=== PATIENT | male | born 1955 | race Caucasian/White ===

== ENCOUNTER 2018-03-21 22:17 | Inpatient (IN) ==
[2018-03-21] MEDS ORDERED: LACTATED RINGERS 1,000 ML IV ONE (22:33)
[2018-03-21] MEDS ORDERED: ONDANSETRON 4 MG/2 ML VIAL IV ONE (22:53)
[2018-03-21] MEDS: HYDROmorphone 2 MG/ML VIAL IV PRN (22:54)
[2018-03-21 23:33] LABS: Basophils # (Auto) 0 K/mcL (0.0-0.3); Basophils % (Auto) 0 % (0.0-2.0); Eosinophils # (Auto) 0 K/mcL (0.0-0.7); Eosinophils % (Auto) 0 % (0.0-7.0); Granulocytes % (Auto) 92.8 % (38.0-78.0); Lymphocytes # (Auto) 0.5 K/mcL (1.5-4.8); Lymphocytes % (Auto) 1.9 % (15.5-49.0); Mean Cell Volume 77.1 fL (80.0-100.0); Mean Corpuscular HGB Conc 31.6 g/dL (31.0-36.0); Mean Corpuscular Hemoglobin 24.4 pg (26.0-34.0); Monocytes # (Auto) 1.3 K/mcL (0.1-0.9); Monocytes % (Auto) 5.3 % (1.0-12.0); Platelet Count 355 K/mcL (140-440); RBC 3.73 M/mcL (4.50-5.90); Red Cell Distribution Width 23.1 % (11.5-14.5)
[2018-03-21 23:42] LABS: ALT/SGPT 7 U/l (0-40); Albumin 2.6 gm/dL (3.2-5.2); Albumin/Globulin Ratio 0.6 (1.0-2.3); Alkaline Phosphatase 68 U/L (39-117); Blood Urea Nitrogen 26 mg/dl (6-20); Lipase 41 U/L (7-60)
[2018-03-21] MEDS ORDERED: LEVOFLOXACIN 750 MG/150 ML BAG IV ONE (23:46)
[2018-03-21] MEDS ORDERED: PIPERACILLIN SODIUM/TAZOBACTAM 3.375 GM in DEXTROSE 5% IN WATER 50 ML IV ONE (23:56)
[2018-03-22] MEDS: HYDROmorphone 2 MG/ML VIAL IV PRN ×2 (00:13→01:13)
[2018-03-22] MEDS ORDERED: 0.9 % SODIUM CHLORIDE 1,000 ML IV ONE (00:15)
[2018-03-22 00:19] LABS: Appearance,Urine CLOUDY; Bacteria,Urine 0 /hpf (0); Bilirubin,Urine NEG (NEG); Color,Urine YELLOW; Glucose,Urine (UA) NEGATIVE (NEG); Leukocyte Esterase,Urine 500 /uL (NEG); Mucus,Urine FEW /hpf (0); Protein,Urine 30 mg/dL (NEG); Specific Gravity,Urine 1.017 (1.000-1.035); Urine Blood 0.03 mg/dL (<0.03); Urine Hyaline Cast 9 /lpf (0-2); Urine RBC 6 /hpf (0-1); Urine Squamous Epithelial Cell 0 /hpf (0-4); Urine WBC 88 /hpf (0-4)
--- NOTE | 2018-03-22 00:52 | Internal Med History&Physical ---
Medical - H&P: HPI Patient information: Note initiated : 03/22/18 at 12:49 am Service Date, if different from initiated Date: [] Patient: Sergey Monaco a 62 y/o M admitted on for suspects abd infection. Chief Complaint: Abdominal pain History of present illness: Mr. Monaco is a 62 year old M with a history of cirrhosis and ascites, COPD which is generally mild, treated peptic ulcer disease who presents to the ED with abdominal pain. History is obtained speaking with the patient, reviewing minimal old records, discussing with the ED staff. Patient states he started having abdominal pain about 2 weeks ago. It waxes and wanes in nature. It is achy in character. It was worse today after about 6 PM. Is up to 10/10 in intensity, again would wax and wane. It was throughout his abdomen, though it seems worse in the right upper abdomen. He's not had fever he knows of, though he felt chills when he arrived at the hospital. There is no associated nausea or vomiting, no diarrhea. There is no change in the pain with food. He does have a history of peptic ulcer disease with heartburn symptoms, he's had none of that associated with the current pain , and he continues to take twice daily omeprazole. Approximately a week before the onset of the symptoms, he ran out a couple of his diuretics (presumably spironolactone and furosemide given his history of significant ascites and he states he was on diuretics to control his abdominal swelling). Since that time he's had slowly increased abdominal swelling and distention. As noted the patient presented to the ED, or evaluation reveals a white count of 25,000, acute kidney injury with creatinine 1.8, elevated lactate of 5.3, elevated INR 1.4. Patient is being admitted to the hospital for the treatment of sepsis from presumptive abdominal source. Urine is also possible source with pyuria and positive leukocyte esterase on specimen, however there is no bacteria on microscopic. All systems: reviewed and no additional remarkable complaints except as stated Medical - H&P: PMH Medical history: Cirrhosis Ascites, history of large volume paracentesis 14.3 liters 07/12/2014-he thinks that may be most recent PUD EGD x [address] 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 Smokes about 1 pack in 4 days; last drink 4 months ago, had been having about 1 drink a month prior to that. Medical - H&P: Meds Home Medications Medication Instructions Recorded Confirmed Type Albuterol Sulfate [Ventolin] 1 puff INH Q4HP PRN 03/22/18 03/22/18 History Omeprazole [Prilosec] 20 cap PO QDAY 03/22/18 03/22/18 History Sennosides/Docusate Sodium [Stool 1 each PO DAILY 03/22/18 03/22/18 History Softener Tablet] Allergies Allergy/AdvReac Type Severity Reaction Status Date / Time codeine AdvReac Mild Vomiting Verified 03/22/18 06:12 Medical - H&P: Exam - Constitutional Vitals: Temp Pulse Resp BP Pulse Ox 98.5 F 109 H 20 125/75 94 03/21/18 22:19 03/22/18 00:41 03/21/18 22:19 03/22/18 00:31 03/22/18 00:41 Exam: GENERAL: Alert, oriented, in no acute distress. Cooperative, thin, appears stated age. HEENT: Atraumatic. PERRL, conjunctiva clear, no scleral icterus. Hearing grossly intact. Oropharynx with dry mucous membranes, no lip or gum lesions, no pharyngeal erythema or exudate. Tongue midline, palate rises symmetrically. NECK: Supple without meningismus, no thyromegaly RESPIRATORY: Breath sounds clear bilaterally without wheezes or rhonchi. Respiratory effort is unlabored. CARDIOVASCULAR: Regular rhythm, mildly tachycardic, no murmur gallop or rub. No peripheral edema. Carotid pulses 2+ without bruit. Pedal pulses 2+. GI: Abdomen soft, distended with moderate tenderness in the right upper quadrant and epigastric regions, mild diffuse tenderness otherwise. No guarding or rebound. The abdomen is dull to percussion, the flanks are bulging. Hepatosplenomegaly cannot be assessed secondary to abdominal distention. LYMPHATIC: No cervical or supraclavicular lymphadenopathy MUSCULOSKELETAL: No joint erythema or swelling, normal range of motion in all extremities. Digital clubbing. SKIN: Skin is very warm to touch, particularly on the abdomen. Spider angiomata are scattered on the chest. No jaundice. Skin turgor is decreased. NEUROLOGIC: Cranial nerves II through XII grossly intact. Muscle mass diminished for age. Strength 5/5 in the upper and lower extremities. Sensation intact to light touch bilaterally. Deep tendon reflexes 2+ at the biceps and patella. No asterixis. PSYCHIATRIC: Alert, oriented x3, normal mood and affect, normal insight. Medical - H&P: Reslt - Labs CBC & Chem 7: 03/22/18 03:00 03/22/18 03:00 Labs: Short CBC 03/21/18 Range/Units 22:35 WBC 25.6 H (4.5-11.0) K/mcL Hgb 9.1 L (13.5-16.5) g/dL Hct 28.7 L (41.0-55.0) % Plt Count 355 (140-440) K/mcL BMP 03/21/18 22:35 Sodium 130 L Potassium 3.1 L Chloride 87 L Carbon Dioxide 23 BUN 26 H Creatinine 1.8 H Glucose 145 H Calcium 8.2 L Liver Function 03/21/18 Range/Units 22:35 Total Bilirubin 1.4 H (0.0-1.0) mg/dL AST 26 (0-37) U/l ALT 7 (0-40) U/l Alkaline Phosphatase 68 (39-117) U/L Albumin 2.6 L (3.2-5.2) gm/dL Urine 03/21/18 Range/Units 23:40 Urine Color Yellow Urine Appearance Cloudy Urine pH 5.0 (5.0-9.0) Ur Specific [place] 1.017 (1.000-1.035) Urine Protein 30 A (NEG) mg/dL Urine Glucose (UA) Negative (NEG) mg/dL - EKG Data -: EKG Reviewed by Myself EKG shows normal: sinus rhythm, intervals, ST-T waves Rate: tachycardia (107) - Imaging and Cardiology Chest x-ray Status: image reviewed by me Additional comments: Expanded lung mitchell, no infiltrates. IMPRESSION: Negative AP chest x-ray CT scan - abdomen Status: image reviewed by me Additional comments: IMPRESSION: 1. Cirrhosis. No detectable hepatic mass. 2. Large amount of ascites. 3. Cholelithiasis 4. No significant splenomegaly. 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 5. No intra-abdominal abscess. No diverticulitis. Medical - H&P: A/P (1) Septic shock Current visit: Yes Status: Acute (2) Abdominal pain Current visit: Yes Status: Acute (3) Acute renal failure (ARF) Current visit: Yes Status: Acute (4) Acute respiratory failure with hypoxia Current visit: Yes Status: Acute (5) Cirrhosis of liver with ascites Current visit: Yes Status: Acute (6) Coagulopathy Current visit: Yes Status: Acute (7) Peptic ulcer disease Current visit: Yes Status: Acute - Narrative A/P Narrative: 62-year-old male presenting with about 2 weeks of worsening abdominal pain, worsened this evening prompting presentation to ED. Noted to have evidence of septic shock (by definition with lactate greater than 4). Septic shock. He has systemic inflammatory response with presumptive infection , optic shock as indicated by hypoperfusion/organ dysfunction with lactate greater than 4 (though may in part be a bit artifactual due to decreased clearance by the liver). Hemodynamically however he is stable, blood pressures are in the 110's systolic. Initially mildly tachycardic, now under the high 90s. He has received fluid resuscitation in the emergency department and antibiotics have been started. Source of sepsis could be acute cholecystitis, he is tender in the right upper quadrant. However only total bilirubin is abnormal as far as liver enzymes go. SBP also a concern, though generally adds not seen with focal tenderness. He will need to be evaluated. He does also have pyuria, but no bacteriuria, urine is another possible source. Lungs are clear. Plan: Admission to ICU Fluid resuscitate 30 mL/KG of IV fluids Broad-spectrum antibiotics, will use single agent in Zosyn which should provide good coverage for cholecystitis as well as peritonitis or cystitis Trend lactate Follow-up perfusion Follow-up results of CT scan Right upper quadrant ultrasound in a.m. to better characterize the gallbladder Ultrasound-guided paracentesis for diagnostic and therapeutic purposes, sending cell count, culture and Gram stain, albumin Abdominal pain. Differential diagnosis as noted above. Plan: As above, follow-up imaging studies. Acute kidney injury. Creatinine 1.8. No old records, patient has no known history of kidney disease. Suspect is secondary to sepsis and represents further organ dysfunction. We'll need to consider hepatorenal is a possibility if creatinine fails to respond to fluid resuscitation. Plan: Follow creatinine with fluid resuscitation. Acute hypoxemic respiratory failure. Patient became mildly hypoxic after presentation in the ED, now requiring supplemental oxygen. Plan: Continue supplemental oxygen. Cirrhosis with ascites. He had 1 large volume paracentesis noted in available records, it occurred in June 2014. He states he's had paracenteses 4 total. He had been on 2 diuretics up until a few weeks ago when he ran out, he has not gotten them refilled. SPECT part of the fluid in his abdomen now is due to lack of diuretic therapy. Does not have evidence of hepatic encephalopathy. Plan: Paracentesis as above. Once sepsis cleared, would benefit from resumption of furosemide and spironolactone. Coagulopathy. Likely secondary to chronic liver disease. INR 1.4. Plan: Monitor Peptic ulcer disease. No evidence of active bleeding. Plan: Continue PPI Prophylaxis: SCDs, will avoid anticoagulants given coagulopathy. CODE STATUS: DO NOT INTUBATE. 105 minutes in patient care
[2018-03-22] MEDS ORDERED: ACETAMINOPHEN 325 MG TABLET PO PRN (01:46)
[2018-03-22] MEDS ORDERED: ONDANSETRON 4 MG/2 ML VIAL IV PRN (01:46)
[2018-03-22] MEDS: 0.9 % SODIUM CHLORIDE 1,000 ML IV SCH ×2 (01:55→12:18)
--- NOTE | 2018-03-22 01:56 | Internal Med Progress Note ---
Medical - Auxillary Note - Subjective Patient Information: Note initiated : 03/22/18 at 1:52 am Service Date, if different from initiated Date: [] Patient: Sergey Monaco 62 y/o M admitted on 03/22/18 for suspects abd infection. Chief Complaint: Sepsis reperfusion note Vital Signs Temperature 98.5 F 03/22/18 01:51 Pulse Rate 108 H 03/22/18 01:51 Respiratory Rate 20 03/22/18 01:51 Blood Pressure 101/66 03/22/18 01:51 Pulse Oximetry (%) 96 03/22/18 01:51 Chest: Coarse breath sounds, unlabored, no wheezes, no rales Cardiovascular: Tachycardic, regular, no murmur, no edema Extremities: 2+ dorsalis pedis pulses, no edema, capillary refill less than 2 seconds. Skin: Warm, nondiaphoretic.
[2018-03-22 03:15] LABS: Hemoglobin A1C 4.9 % HGB (4.0-6.0)
[2018-03-22] MEDS: 0.9 % SODIUM CHLORIDE 10 ML SYRINGE IV SCH ×3 (03:21→15:47)
[2018-03-22 04:58] LABS: Mean Cell Volume 76.9 fL (80.0-100.0); Mean Corpuscular HGB Conc 31.5 g/dL (31.0-36.0); Mean Corpuscular Hemoglobin 24.2 pg (26.0-34.0); Platelet Count 270 K/mcL (140-440); RBC 3.48 M/mcL (4.50-5.90); Red Cell Distribution Width 22.4 % (11.5-14.5)
[2018-03-22 05:33] LABS: ALT/SGPT 5 U/l (0-40); Albumin 2.2 gm/dL (3.2-5.2); Albumin/Globulin Ratio 0.6 (1.0-2.3); Alkaline Phosphatase 71 U/L (39-117); Bilirubin,Direct 0.4 mg/dL (0.0-0.3); Blood Urea Nitrogen 26 mg/dl (6-20); Gamma Glutamyl Transpeptidase 22 U/L (8-61); Uric Acid 7.8 mg/dL (2.5-8.0)
[2018-03-22 05:38] LABS: Anisocytosis 2+ (NONE SEEN); Hypochromasia 1+ (NONE SEEN); Lymphocytes % 1 % (15-49); Monocytes % (Manual) 4 % (1-12); Platelet Estimate NORMAL (NORMAL); RBC Morphology ABNORM (NORMAL); Segmented Neutrophils % 95 % (38-78)
[2018-03-22] MEDS: PIPERACILLIN SODIUM/TAZOBACTAM 3.375 GM in DEXTROSE 5% IN WATER 50 ML IV SCH ×3 (05:45→17:42)
--- NOTE | 2018-03-22 05:56 | XRay Report ---
INDICATION: Smoking history. Dyspnea. TECHNIQUE: AP chest x-ray, portable semiupright COMPARISON: None FINDINGS: Lungs are negative. No parenchymal infiltrate or mass. No focal abnormality. Heart size and vascularity are normal. Alia and mediastinum are negative. No pleural fluid. IMPRESSION: Negative AP chest x-ray Interpreted and Authenticated by: Jacinto Dacosta 03/22/18
[2018-03-22] MEDS ORDERED: MAGNESIUM SULFATE 32.48 MEQ in DEXTROSE 5% IN WATER 100 ML IV ONE (06:00)
--- NOTE | 2018-03-22 06:04 | Cat Scan Report ---
CLINICAL INFORMATION: History of cirrhosis and ascites. Abdominal pain. COMPARISON: Previous abdominal ultrasounds and ultrasound-guided paracentesis. Previous MRI dated 08/15/2013 TECHNIQUE: Axial images were obtained through the abdomen and pelvis. Sagittally and coronally reformatted images. FINDINGS: Lung bases are negative. No parenchymal infiltrate or mass. No pleural fluid. No pericardial fluid. Liver is small and nodular consistent with cirrhosis. No focal mass identified on this noncontrast enhanced examination. Gallbladder is present and there are calcified gallstones. Spleen is not significantly enlarged. Spleen measures 11 cm maximally. There is no recanalized umbilical vein. There are is soft tissue density which is paraesophageal and is consistent with paraesophageal varices. There are probable retroperitoneal varices. There is a large amount of ascitic fluid. There is no detectable intra-abdominal abscess. No gas bubbles within the ascitic fluid. No detectable peritoneal based mass. Peritonitis is not excluded based on this examination. There is fluid extending into the right inguinal canal. Pancreas is negative to the limits of noncontrast enhanced examination. Adrenal glands are negative. Kidneys are small. No hydronephrosis. There is a small nonobstructing left renal calculus. No hydronephrosis or hydroureter. No bladder calculus. Abdominal aorta is calcified. No abdominal aortic aneurysm. Colon appears intrinsically normal. No evidence for diverticulitis. No detectable colonic mass. Appendix is not well-visualized. There is no evidence for appendicitis. No lumbar compression fracture. Sacrum and pelvis are negative. Examination was initially interpreted by [facility] IMPRESSION: 1. Cirrhosis. No detectable hepatic mass. 2. Large amount of ascites. 3. Cholelithiasis 4. No significant splenomegaly. 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 5. No intra-abdominal abscess. No diverticulitis. The exam was performed using radiation dose optimization techniques including, but not limited to, automated exposure control, adjustment of the mA and/or kV according to patient size and use of iterative reconstruction technique. Interpreted and Authenticated by: Jacinto Dacosta 03/22/18
[2018-03-22] MEDS ORDERED: MAGNESIUM SULFATE 4 GM/100 ML BAG IV ONE (06:08)
[2018-03-22] MEDS ORDERED: MAGNESIUM SULFATE 2 GM/50 ML BAG IV SCH ×2 (06:15→08:00)
--- NOTE | 2018-03-22 07:08 | Emergency Department Note ---
Abdominal Pain HPI - General Chief Complaint: Abdominal Pain Stated Complaint: suspects abd infection Time Seen by Provider: 03/21/18 22:39 Source: patient Mode of arrival: ambulatory Limitations: no limitations - History of Present Illness HPI Narrative: This patient has had abdominal pain for last several days. Slight nausea. Pain is felt in the right upper quadrant and epigastrium. Does not radiate to the back. He says he has had a lot of trouble drinking in the past but has not had a drink a couple of years. - Related Data Home Medications Medication Instructions Recorded Confirmed Albuterol Sulfate [Ventolin] 1 puff INH Q4HP PRN 03/22/18 03/22/18 Omeprazole [Prilosec] 20 cap PO QDAY 03/22/18 03/22/18 Sennosides/Docusate Sodium [Stool 1 each PO DAILY 03/22/18 03/22/18 Softener Tablet] Allergies Allergy/AdvReac Type Severity Reaction Status Date / Time codeine AdvReac Mild Vomiting Verified 03/22/18 06:12 Review of Systems Constitutional: Denies: fever Cardiovascular: Denies: chest pain Respiratory: Denies: shortness of breath, cough Gastrointestinal: Reports: abdominal pain, nausea Genitourinary: Denies: dysuria Abdominal Pain PMH - Past Medical History PMF Narrative: Previous alcohol abuse - Social History Smoking status: Current every day smoker Physical Exam Limitations: no limitations General appearance: alert Head: atraumatic Eye: Present: normal appearance ENT: normal exam Neck: Present: normal inspection Chest: Present: normal inspection Respiratory: Present: normal lung sounds bilaterally Cardiovascular: Present: regular rate, normal rhythm, normal heart sounds Abdominal: Present: soft, distention, tenderness. Absent: guarding, rebound, rigidity Abdominal tenderness: Present: RUQ, epigastrium Neurological: Present: alert Psychiatric: Present: normal affect, normal mood Skin: Present: warm, dry Course Vital Signs Temperature 98.5 F 03/21/18 22:19 Pulse Rate 110 H 03/21/18 22:19 Respiratory Rate 20 03/21/18 22:19 Blood Pressure 119/69 03/21/18 22:19 Pulse Oximetry (%) 100 03/21/18 22:19 Temperature 98.9 F 03/22/18 04:02 Pulse Rate 97 H 03/22/18 06:00 Respiratory Rate 24 H 03/22/18 06:00 Blood Pressure 95/59 03/22/18 06:00 Pulse Oximetry (%) 98 03/22/18 06:00 Abdominal Pain - MDM Narrative Medical decision making narrative: Patient's laboratory evaluation was worrisome for sepsis possibly from the urinary tract. His lactic acid was over 5 and his white count was 27,000. We gave him IV Levaquin and Zosyn and he will be admitted to the ICU by Dr. Bardales. - Lab Data Lab results reviewed: Yes I reviewed the patient's lab results. Result diagrams: 03/22/18 03:00 03/22/18 03:00 Lab Results 03/21/18 03/21/18 03/21/18 Range/Units 22:35 22:35 22:35 WBC 25.6 H (4.5-11.0) K/mcL RBC 3.73 L (4.50-5.90) M/mcL Hgb 9.1 L (13.5-16.5) g/dL Hct 28.7 L (41.0-55.0) % POC Hct 29.0 L (41.0-55.0) % MCV 77.1 L (80.0-100.0) fL MCH 24.4 L (26.0-34.0) pg MCHC 31.6 (31.0-36.0) g/dL RDW 23.1 H (11.5-14.5) % Plt Count 355 (140-440) K/mcL MPV 9.0 (7.4-10.4) fL Gran % 92.8 H (38.0-78.0) % Lymph % (Auto) 1.9 L (15.5-49.0) % [place] % (Auto) 5.3 (1.0-12.0) % Eos % (Auto) 0 (0.0-7.0) % Baso % (Auto) 0 (0.0-2.0) % Gran # 23.7 H (1.8-8.0) K/mcL Lymph # (Auto) 0.5 L (1.5-4.8) K/mcL [place] # (Auto) 1.3 H (0.1-0.9) K/mcL Eos # (Auto) 0 (0.0-0.7) K/mcL Baso # (Auto) 0 (0.0-0.3) K/mcL VBG Lactic Acid (0.5-2.2) mmol/L POC Sodium 134 (133-145) mmol/L Sodium 130 L (133-145) mmol/L POC Potassium 3.0 L (3.3-5.1) mmol/L Potassium 3.1 L (3.3-5.1) mmol/L POC Chloride 94 L (96-108) mmol/L Chloride 87 L (96-108) mmol/L Carbon Dioxide 23 (22-30) mmol/L POC Total CO2 21 L (22-30) mmol/L Anion Gap 20.0 H (8-16) POC BUN 24 H (6-20) mg/dl BUN 26 H (6-20) mg/dl Creatinine 1.8 H (0.7-1.2) mg/dl POC Creatinine 1.7 H (0.7-1.2) mg/dl GFR Calculation 40 Glucose 145 H (70-105) mg/dL POC Glucose 144 H (70-105) mg/dL Hemoglobin A1c (4.0-6.0) % HGB Estim Average Glucose mg/dL Calcium 8.2 L (8.6-10.4) mg/dl POC WB Ioniz Calcium 0.91 L (1.16-1.32) mmol/L Total Bilirubin 1.4 H (0.0-1.0) mg/dL AST 26 (0-37) U/l ALT 7 (0-40) U/l Alkaline Phosphatase 68 (39-117) U/L Total Protein 7.1 (5.9-8.4) gm/dL Albumin 2.6 L (3.2-5.2) gm/dL Globulin 4.5 H (2.2-3.7) gm/dL Albumin/Globulin Ratio 0.6 L (1.0-2.3) Lipase 41 (7-60) U/L Urine Color Urine Appearance Urine pH (5.0-9.0) Ur Specific [place] (1.000-1.035) Urine Protein (NEG) mg/dL Urine Glucose (UA) (NEG) mg/dL Urine Ketones (NEG) mg/dL Urine Occult Blood (<0.03) mg/dL Urine Nitrate (NEG) Urine Bilirubin (NEG) mg/dL Urine Urobilinogen (NEG) mg/dL Ur Leukocyte Esterase (NEG) /uL Urine RBC (0-1) /hpf Urine WBC (0-4) /hpf Ur Squamous Epith Cells (0-4) /hpf Urine Bacteria (0) /hpf Hyaline Casts (0-2) /lpf Urine Mucus (0) /hpf Ur Culture Indicated? 03/21/18 03/21/18 03/21/18 Range/Units 22:35 23:00 23:40 WBC (4.5-11.0) K/mcL RBC (4.50-5.90) M/mcL Hgb (13.5-16.5) g/dL Hct (41.0-55.0) % POC Hct (41.0-55.0) % MCV (80.0-100.0) fL MCH (26.0-34.0) pg MCHC (31.0-36.0) g/dL RDW (11.5-14.5) % Plt Count (140-440) K/mcL MPV (7.4-10.4) fL Gran % (38.0-78.0) % Lymph % (Auto) (15.5-49.0) % [place] % (Auto) (1.0-12.0) % Eos % (Auto) (0.0-7.0) % Baso % (Auto) (0.0-2.0) % Gran # (1.8-8.0) K/mcL Lymph # (Auto) (1.5-4.8) K/mcL [place] # (Auto) (0.1-0.9) K/mcL Eos # (Auto) (0.0-0.7) K/mcL Baso # (Auto) (0.0-0.3) K/mcL VBG Lactic Acid 5.3 H* (0.5-2.2) mmol/L POC Sodium (133-145) mmol/L Sodium (133-145) mmol/L POC Potassium (3.3-5.1) mmol/L Potassium (3.3-5.1) mmol/L POC Chloride (96-108) mmol/L Chloride (96-108) mmol/L Carbon Dioxide (22-30) mmol/L POC Total CO2 (22-30) mmol/L Anion Gap (8-16) POC BUN (6-20) mg/dl BUN (6-20) mg/dl Creatinine (0.7-1.2) mg/dl POC Creatinine (0.7-1.2) mg/dl GFR Calculation Glucose (70-105) mg/dL POC Glucose (70-105) mg/dL Hemoglobin A1c 4.9 (4.0-6.0) % HGB Estim Average Glucose 94 mg/dL Calcium (8.6-10.4) mg/dl POC WB Ioniz Calcium (1.16-1.32) mmol/L Total Bilirubin (0.0-1.0) mg/dL AST (0-37) U/l ALT (0-40) U/l Alkaline Phosphatase (39-117) U/L Total Protein (5.9-8.4) gm/dL Albumin (3.2-5.2) gm/dL Globulin (2.2-3.7) gm/dL Albumin/Globulin Ratio (1.0-2.3) Lipase (7-60) U/L Urine Color Yellow Urine Appearance Cloudy Urine pH 5.0 (5.0-9.0) Ur Specific [place] 1.017 (1.000-1.035) Urine Protein 30 A (NEG) mg/dL Urine Glucose (UA) Negative (NEG) mg/dL Urine Ketones Neg (NEG) mg/dL Urine Occult Blood 0.03 A (<0.03) mg/dL Urine Nitrate Neg (NEG) Urine Bilirubin Neg (NEG) mg/dL Urine Urobilinogen 2.0 A (NEG) mg/dL Ur Leukocyte Esterase 500 A (NEG) /uL Urine RBC 6 H (0-1) /hpf Urine WBC 88 H (0-4) /hpf Ur Squamous Epith Cells 0 (0-4) /hpf Urine Bacteria 0 (0) /hpf Hyaline Casts 9 H (0-2) /lpf Urine Mucus Few (0) /hpf Ur Culture Indicated? Yes Disposition Pt seen by CARD DECORATOR/PA only: No Clinical Impression: Sepsis, UTI (urinary tract infection) Disposition: Xfer As Inpt ([facility]) Condition: Fair
[2018-03-22] MEDS: PANTOPRAZOLE 40 MG VIAL IV SCH ×2 (07:34→17:19)
--- NOTE | 2018-03-22 08:11 | Ultrasound Report ---
CLINICAL INFORMATION: Possible peritonitis. History of cirrhosis and ascites TECHNIQUE: Grayscale and color flow Doppler spectral imaging COMPARISON: CT scan dated 03/22/2018 FINDINGS: Abnormal gallbladder. There are stones in the dependent portion of the gallbladder. Gallbladder wall measures 5 mm. This gallbladder wall thickening may be due to ascites. No dilated bile duct. Common bile duct measures 4 mm. Liver is normal. Liver is nodular in configuration consistent with cirrhosis. The liver appears small but measures approximately 15 cm maximally. No detectable focal mass. No evidence for hepatocellular carcinoma. Normal hepatopedal portal venous flow demonstrated with color flow Doppler spectral imaging There is at least moderate ascites. There are septations within the ascitic fluid. No focal intra-abdominal mass to indicate abscess. IMPRESSION: 1. Appearance consistent with cirrhosis. No hepatic mass 2. Ascites. There are septations within the ascitic fluid. 3. Cholelithiasis Interpreted and Authenticated by: Jacinto Dacosta 03/22/18
[2018-03-22] MEDS: ALBUMIN HUMAN 25 GM/100 ML BAG IV SCH ×2 (09:44→15:50)
--- NOTE | 2018-03-22 10:15 | Ultrasound Report ---
CLINICAL INFORMATION: Ascites. Possible peritonitis. TECHNIQUE: Informed consent was obtained. Ascitic fluid was localized with ultrasound. Routine for prepped skin cleansing. 1% lidocaine injected subcutaneously and deep. An 8 [place] Safe T Centesis kit was utilized. Routine radiology tray was also opened and used. 5.2 L of mariana-colored fluid was removed. 15 mL fluid was sent to the laboratory for appropriate studies. IMPRESSION: 1. Ultrasound-guided paracentesis 2. 5.2 L mariana color fluid removed. Interpreted and Authenticated by: Jacinto Dacosta 03/22/18
[2018-03-22] MEDS ORDERED: VANCOMYCIN PER PHARMACY IV SCH (11:43)
--- NOTE | 2018-03-22 11:53 | Internal Med Progress Note ---
Medical - PN: Subj Patient information: Note initiated : 03/22/18 at 11:43 am Service Date, if different from initiated Date: [] Patient: Sergey Mnoaco a 62 y/o M admitted on 03/22/18 for suspects abd infection. Chief Complaint: f/u sepsis Interval history: 03/22 Early AM Mr. Monaco is a 62 year old M with a history of cirrhosis and ascites, COPD which is generally mild, treated peptic ulcer disease who presents to the ED with abdominal pain. History is obtained speaking with the patient, reviewing minimal old records, discussing with the ED staff. Patient states he started having abdominal pain about 2 weeks ago. It waxes and wanes in nature. It is achy in character. It was worse today after about 6 PM. Is up to 10/10 in intensity, again would wax and wane. It was throughout his abdomen, though it seems worse in the right upper abdomen. He's not had fever he knows of, though he felt chills when he arrived at the hospital. There is no associated nausea or vomiting, no diarrhea. There is no change in the pain with food. He does have a history of peptic ulcer disease with heartburn symptoms, he's had none of that associated with the current pain , and he continues to take twice daily omeprazole. Approximately a week before the onset of the symptoms, he ran out a couple of his diuretics (presumably spironolactone and furosemide given his history of significant ascites and he states he was on diuretics to control his abdominal swelling). Since that time he's had slowly increased abdominal swelling and distention. As noted the patient presented to the ED, or evaluation reveals a white count of 25,000, acute kidney injury with creatinine 1.8, elevated lactate of 5.3, elevated INR 1.4. Patient is being admitted to the hospital for the treatment of sepsis from presumptive abdominal source. Urine is also possible source with pyuria and positive leukocyte esterase on specimen, however there is no bacteria on microscopic. 03/22 Late AM -Was feeling improved after fluids this morning -Status post large volume paracentesis with diagnostic studies pending -CT abdomen with cholelithiasis, no changes consistent with acute cholecystitis , no other onions other than ascites -Hepatic ultrasound without acute cholecystitis -Differential diagnosis for source of sepsis include urine, SBP or other abdominal process -Antibiotics expanded as white count has increased to 27,000, vancomycin added to Zosyn -Albumin post-paracentesis ordered -Remains hemodynamically stable - Constitutional Vitals: Vital Signs Temp Pulse Resp BP Pulse Ox 98.9 F 86 20 100/62 97 03/22/18 04:02 03/22/18 10:54 03/22/18 10:54 03/22/18 08:01 03/22/18 10:54 Period Temp Pulse Resp BP Sys/Aguayo Pulse Ox Last 24 Hr 98.5 F-100.4 F 75-116 19-36 90-163/57-130 88-100 Intake and Output 03/21/18 03/22/18 03/22/18 21:59 05:59 13:59 Intake Total 2260 / 2260 150 / 150 Output Total 0 / 0 Balance 2260 / 2260 150 / 150 Weight 158 lb 7 oz Intake & Output: Intake & Output 03/21/18 03/22/18 03/22/18 21:59 05:59 13:59 Intake Total 2260 / 2260 150 / 150 Output Total 0 / 0 Balance 2260 / 2260 150 / 150 Weight 158 lb 7 oz Intake: IV 2200 / 2200 150 / 150 Sodium Chloride 0.9% 1,000 ml @ 1000 / 1000 Wide Open IV [facility] Rx#: [id number] Lactated Ringers 1,000 ml @ 1000 / 1000 Wide Open IV [facility] Rx#: [id number] Zosyn 3.375 gm In Dextrose 5% 50 / 50 50 / 50 in Water 50 ml @ 100 mls/hr IV Q6H [facility] Rx#:[id number] Oral 60 / 60 Output: Void Amount 0 / 0 Other: Stool Size Moderate Stool Color Brown Stool Consistency Loose Exam: General: Awake, alert, abdominal pain diminished Chest: Diminished at bases, otherwise clear Cardiac vascular: Regular, mildly tachycardic Abdomen: Distended, mild to moderate right upper quadrant and epigastric tenderness, mild diffuse tenderness, no guarding or rebound, bulging flanks (pre -paracentesis) Neuro: Alert, oriented 3 Medical - PN: Obj Da - Labs CBC & Chem 7: 03/22/18 03:00 03/22/18 03:00 Labs: Abnormal Lab Results 03/22/18 03/22/18 03/22/18 10:25 06:00 03:00 WBC RBC Hgb Hct POC Hct MCV MCH RDW Gran % Lymph % (Auto) Gran # Lymph # (Auto) Gordon # (Auto) Seg Neutrophils % Lymphocytes % RBC Morphology Hypochromasia Anisocytosis Microcytosis VBG Lactic Acid < 0.2 L 2.4 H Sodium POC Potassium Potassium POC Chloride Chloride 95 L POC Total CO2 Anion Gap POC BUN BUN 26 H Creatinine 1.8 H POC Creatinine Glucose 134 H POC Glucose Calcium 7.3 L POC WB Ioniz Calcium Magnesium 1.1 L Total Bilirubin 1.2 H Direct Bilirubin 0.4 H Albumin 2.2 L Globulin 3.9 H Albumin/Globulin Ratio 0.6 L Urine Protein Urine Occult Blood Urine Urobilinogen Ur Leukocyte Esterase Urine RBC Urine WBC Hyaline Casts 03/22/18 03/22/18 03/21/18 03:00 03:00 23:40 WBC 27.5 H RBC 3.48 L Hgb 8.4 L Hct 26.7 L POC Hct MCV 76.9 L MCH 24.2 L RDW 22.4 H Gran % Lymph % (Auto) Gran # Lymph # (Auto) Gordon # (Auto) Seg Neutrophils % 95 H Lymphocytes % 1 L RBC Morphology Abnorm A Hypochromasia 1+ A Anisocytosis 2+ A Microcytosis 1+ A VBG Lactic Acid 2.8 H Sodium POC Potassium Potassium POC Chloride Chloride POC Total CO2 Anion Gap POC BUN BUN Creatinine POC Creatinine Glucose POC Glucose Calcium POC WB Ioniz Calcium Magnesium Total Bilirubin Direct Bilirubin Albumin Globulin Albumin/Globulin Ratio Urine Protein 30 A Urine Occult Blood 0.03 A Urine Urobilinogen 2.0 A Ur Leukocyte Esterase 500 A Urine RBC 6 H Urine WBC 88 H Hyaline Casts 9 H 03/21/18 03/21/18 03/21/18 23:00 22:35 22:35 WBC 25.6 H RBC 3.73 L Hgb 9.1 L Hct 28.7 L POC Hct MCV 77.1 L MCH 24.4 L RDW 23.1 H Gran % 92.8 H Lymph % (Auto) 1.9 L Gran # 23.7 H Lymph # (Auto) 0.5 L Gordon # (Auto) 1.3 H Seg Neutrophils % Lymphocytes % RBC Morphology Hypochromasia Anisocytosis Microcytosis VBG Lactic Acid 5.3 H* Sodium 130 L POC Potassium Potassium 3.1 L POC Chloride Chloride 87 L POC Total CO2 Anion Gap 20.0 H POC BUN BUN 26 H Creatinine 1.8 H POC Creatinine Glucose 145 H POC Glucose Calcium 8.2 L POC WB Ioniz Calcium Magnesium Total Bilirubin 1.4 H Direct Bilirubin Albumin 2.6 L Globulin 4.5 H Albumin/Globulin Ratio 0.6 L Urine Protein Urine Occult Blood Urine Urobilinogen Ur Leukocyte Esterase Urine RBC Urine WBC Hyaline Casts 03/21/18 22:35 WBC RBC Hgb Hct POC Hct 29.0 L MCV MCH RDW Gran % Lymph % (Auto) Gran # Lymph # (Auto) Gordon # (Auto) Seg Neutrophils % Lymphocytes % RBC Morphology Hypochromasia Anisocytosis Microcytosis VBG Lactic Acid Sodium POC Potassium 3.0 L Potassium POC Chloride 94 L Chloride POC Total CO2 21 L Anion Gap POC BUN 24 H BUN Creatinine POC Creatinine 1.7 H Glucose POC Glucose 144 H Calcium POC WB Ioniz Calcium 0.91 L Magnesium Total Bilirubin Direct Bilirubin Albumin Globulin Albumin/Globulin Ratio Urine Protein Urine Occult Blood Urine Urobilinogen Ur Leukocyte Esterase Urine RBC Urine WBC Hyaline Casts Meds: Medications Acetaminophen (Tylenol) 650 mg PO Q6HP PRN PRN Reason: PAIN/FEVER > 101 Hydromorphone HCl (Dilaudid) 0.5 mg IV Q2HP PRN PRN Reason: PAIN LEVEL > 6 Sodium Chloride (Sodium Chloride 0.9%) 1,000 mls @ 100 mls/hr IV .Q10H [facility] Last Admin: 03/22/18 01:55 Dose: 100 mls/hr Piperacillin Sod/Tazobactam (Sod 3.375 gm/ Dextrose) 50 mls @ 100 mls/hr IV Q6H [facility] Last Infusion: 03/22/18 06:28 Dose: Infused Albumin Human (Buminate) 25 gm in 100 mls @ 200 mls/hr IV Q8H [facility] Stop: 03/23/18 00:29 Last Infusion: 03/22/18 10:14 Dose: Infused Ondansetron HCl (Zofran) 4 mg IV Q4-6HP PRN PRN Reason: Nausea And Vomiting Pantoprazole Sodium (Protonix) 40 mg IV BIDAC [facility] Last Admin: 03/22/18 07:34 Dose: 40 mg Sodium Chloride (Saline Flush) 10 ml IV Q8 [facility] Last Admin: 03/22/18 05:46 Dose: 10 ml Vancomycin HCl (Vancomycin Per Pharmacy) 1 order IV ONCE ONE Stop: 03/22/18 11:44 - Imaging and cardiology US - abdomen Additional comments: IMPRESSION: 1. Appearance consistent with cirrhosis. No hepatic mass 2. Ascites. There are septations within the ascitic fluid. 3. Cholelithiasis Medical - PN: A/P - Time Spent With Patient Total time spent in caring for patient between 00:10h and 11:55h on this date: 145 minutes. (1) Septic shock Status: Acute Current Visit: Yes (2) Abdominal pain Status: Acute Current Visit: Yes (3) Acute renal failure (ARF) Status: Acute Current Visit: Yes (4) Acute respiratory failure with hypoxia Status: Acute Current Visit: Yes (5) Cirrhosis of liver with ascites Status: Acute Current Visit: Yes (6) Coagulopathy Status: Acute Current Visit: Yes (7) Peptic ulcer disease Status: Acute Current Visit: Yes - Narrative A/P Narrative: 62-year-old male presenting with about 2 weeks of worsening abdominal pain, worsened this evening prompting presentation to ED. Noted to have evidence of septic shock (by definition with lactate greater than 4). Septic shock. He has systemic inflammatory response with presumptive infection , septic shock as indicated by hypoperfusion/organ dysfunction with lactate greater than 4 (though may in part be a bit artifactual due to decreased clearance by the liver). Hemodynamically stable, blood pressures are in the 110 's systolic. Initially mildly tachycardic, now under the high 90s. Status post 30 ML/KG fluid resuscitation. Since admission early this morning, lactate has cleared. Still suspect abdominal source of sepsis, results of paracentesis pending. Abdominal ultrasound without evidence of acute cholecystitis. Plan: Continue with broad-spectrum antibiotics, follow cultures. We'll add vancomycin to Zosyn at this time. Follow-up results of paracentesis. Abdominal pain. Differential diagnosis as noted above. Plan: As above, follow-up imaging studies. Acute kidney injury. Creatinine 1.8. No old records, patient has no known history of kidney disease. No change after fluids. Query whether this may be baseline actually. Plan: Follow creatinine. Acute hypoxemic respiratory failure. Patient became mildly hypoxic after presentation in the ED, now requiring supplemental oxygen. Plan: Continue supplemental oxygen. Cirrhosis with ascites. Status post 5.3 L paracentesis this morning. Studies pending. Remains awake and alert without evidence of encephalopathy. Plan: Follow-up paracentesis results, albumin 25 g IV every 8 hours 3 doses Coagulopathy. Likely secondary to chronic liver disease. INR 1.4. Plan: Monitor Peptic ulcer disease. No evidence of active bleeding. Plan: Continue PPI Medical - PN: Qual - VTE Deep Vein Thrombosis/Pulmonary Embolism Present on Admission: No
[2018-03-22] MEDS ORDERED: VANCOMYCIN 1,000 MG in 0.9 % SODIUM CHLORIDE 250 ML IV SCH (12:00)
[2018-03-22 12:18] LABS: Nucleated Cel,Peritoneal Fluid 1404 /cumm; RBC,Peritoneal Fluid < 50000 /cumm
[2018-03-22 12:39] LABS: Neutrophils,Peritoneal Fluid 88 %
[2018-03-22] MEDS ORDERED: ALBUMIN HUMAN 12.5 GM/50 ML BAG IV ONE (13:05)
[2018-03-23] MEDS: 0.9 % SODIUM CHLORIDE 10 ML SYRINGE IV SCH ×5 (00:11→19:59)
[2018-03-23] MEDS: PIPERACILLIN SODIUM/TAZOBACTAM 3.375 GM in DEXTROSE 5% IN WATER 50 ML IV SCH ×2 (00:14→05:56)
[2018-03-23] MEDS: ALBUMIN HUMAN 25 GM/100 ML BAG IV SCH (00:15)
[2018-03-23] MEDS: 0.9 % SODIUM CHLORIDE 1,000 ML IV SCH (00:17)
[2018-03-23 05:28] LABS: Basophils # (Auto) 0 K/mcL (0.0-0.3); Basophils % (Auto) 0 % (0.0-2.0); Eosinophils # (Auto) 0 K/mcL (0.0-0.7); Eosinophils % (Auto) 0.1 % (0.0-7.0); Granulocytes % (Auto) 92.5 % (38.0-78.0); Lymphocytes # (Auto) 0.5 K/mcL (1.5-4.8); Lymphocytes % (Auto) 2.5 % (15.5-49.0); Mean Cell Volume 77.4 fL (80.0-100.0); Mean Corpuscular HGB Conc 32.5 g/dL (31.0-36.0); Mean Corpuscular Hemoglobin 25.2 pg (26.0-34.0); Monocytes % (Auto) 4.9 % (1.0-12.0); Platelet Count 174 K/mcL (140-440); RBC 2.58 M/mcL (4.50-5.90); Red Cell Distribution Width 22.5 % (11.5-14.5)
[2018-03-23 05:49] LABS: ALT/SGPT < 5 U/l (0-40); Albumin 2.7 gm/dL (3.2-5.2); Alkaline Phosphatase 46 U/L (39-117); Bilirubin,Direct 0.4 mg/dL (0.0-0.3); Blood Urea Nitrogen 25 mg/dl (6-20); Gamma Glutamyl Transpeptidase 13 U/L (8-61); Uric Acid 6.2 mg/dL (2.5-8.0)
[2018-03-23] MEDS ORDERED: POTASSIUM CHLORIDE 20 MEQ PACKET PO ONE (07:39)
--- NOTE | 2018-03-23 07:48 | Internal Med Progress Note ---
Medical - PN: Subj Patient information: Note initiated : 03/23/18 at 7:27 am Service Date, if different from initiated Date: [] Patient: Sergey Monaco a 62 y/o M admitted on 03/22/18 for suspects abd infection. Chief Complaint: [] Interval history: Mr. Monaco is a 62 year old M with a history of cirrhosis and ascites, COPD which is generally mild, treated peptic ulcer disease who presents to the ED with abdominal pain. History is obtained speaking with the patient, reviewing minimal old records, discussing with the ED staff. Patient states he started having abdominal pain about 2 weeks ago. It waxes and wanes in nature. It is achy in character. It was worse today after about 6 PM. Is up to 10/10 in intensity, again would wax and wane. It was throughout his abdomen, though it seems worse in the right upper abdomen. He's not had fever he knows of, though he felt chills when he arrived at the hospital. There is no associated nausea or vomiting, no diarrhea. There is no change in the pain with food. He does have a history of peptic ulcer disease with heartburn symptoms, he's had none of that associated with the current pain , and he continues to take twice daily omeprazole. Approximately a week before the onset of the symptoms, he ran out a couple of his diuretics (presumably spironolactone and furosemide given his history of significant ascites and he states he was on diuretics to control his abdominal swelling). Since that time he's had slowly increased abdominal swelling and distention. As noted the patient presented to the ED, or evaluation reveals a white count of 25,000, acute kidney injury with creatinine 1.8, elevated lactate of 5.3, elevated INR 1.4. Patient is being admitted to the hospital for the treatment of sepsis from presumptive abdominal source. Urine is also possible source with pyuria and positive leukocyte esterase on specimen, however there is no bacteria on microscopic. 9 Late AM -Was feeling improved after fluids this morning -Status post large volume paracentesis with diagnostic studies pending -CT abdomen with cholelithiasis, no changes consistent with acute cholecystitis , no other onions other than ascites -Hepatic ultrasound without acute cholecystitis -Differential diagnosis for source of sepsis include urine, SBP or other abdominal process -Antibiotics expanded as white count has increased to 27,000, vancomycin added to Zosyn -Albumin post-paracentesis ordered -Remains hemodynamically stable 03/23 no new complaints. Does have abdominal pain but better when it was especially since the paracentesis. Denies any hematemesis or bloody stools, he had one loose stool last night has not had any since then. No bruising Review of Systems: denies headache/fever/chills/nausea/vomiting/chest pain/cough/dyspnea/diarrhea. Otherwise see above. - Constitutional Vitals: Vital Signs Temp Pulse Resp BP Pulse Ox 98.3 F 80 18 104/58 96 03/23/18 07:01 03/23/18 07:01 03/23/18 07:01 03/23/18 07:01 03/23/18 07:01 Period Temp Pulse Resp BP Sys/Aguayo Pulse Ox Last 24 Hr 97.9 F-98.4 F 73-92 16-30 71-108/43-64 94-100 Intake and Output 03/22/18 03/23/18 03/23/18 21:59 05:59 13:59 Intake Total 950 / 950 1590 / 1590 Output Total 835 / 835 415 / 415 90 / 90 Balance 115 / 115 1175 / 1175 -90 / -90 Weight 68.492 kg Intake & Output: Intake & Output 03/22/18 03/23/18 03/23/18 21:59 05:59 13:59 Intake Total 950 / 950 1590 / 1590 Output Total 835 / 835 415 / 415 90 / 90 Balance 115 / 115 1175 / 1175 -90 / -90 Weight 68.492 kg Intake: IV 450 / 450 1050 / 1050 Sodium Chloride 0.9% 1,000 ml @ 1000 / 1000 100 mls/hr IV .Q10H [facility] Rx#: [id number] Zosyn 3.375 gm In Dextrose 5% 50 / 50 50 / 50 in Water 50 ml @ 100 mls/hr IV Q6H [facility] Rx#:[id number] Vancomycin 1,000 mg In Sodium 250 / 250 Chloride 0.9% 250 ml @ 250 mls/ hr IV DAILY [facility] Rx#:[id number] Oral 500 / 500 540 / 540 Output: Urine Catheter Amount 235 / 235 415 / 415 90 / 90 Void Amount 600 / 600 Other: Meal Lunch Percent of Meal Consumed Refused Urine Appearance Clear Sediment Clear Uretheral (Sanchez) Clear Sediment Urine Color Bright Yellow Bright Yellow Light Ashley Dark Yellow Uretheral (Sanchez) Bright Yellow Bright Yellow Urine Odor Normal Stool Size Moderate Stool Consistency Liquid # Bowel Movements 1 Exam: General: Alert, Awake, No acute Distress HEENT: EOMI, CV: RRR, normal s1/s2 Pulm: Clear b/l, no wheezing/rhonchi/rales Abd: distended, generalized tenderness overall improved per pt, +BS x4 Ext: no clubbing/cyanosis/edema Neuro: Alert, no focal deficits, moves all extremities Skin: warm/dry Medical - PN: Obj Da - Labs CBC & Chem 7: 03/23/18 06:18 03/23/18 03:47 Labs: Abnormal Lab Results 03/23/18 03/23/18 03/23/18 06:18 03:47 03:47 WBC 20.7 H RBC 2.58 L Hgb 6.4 L* 6.5 L* Hct 20.2 L* 19.9 L* POC Hct MCV 77.4 L MCH 25.2 L RDW 22.5 H Gran % 92.5 H Lymph % (Auto) 2.5 L Gran # 19.1 H Lymph # (Auto) 0.5 L Ray # (Auto) 1.0 H Seg Neutrophils % Lymphocytes % RBC Morphology Hypochromasia Anisocytosis Microcytosis VBG Lactic Acid Sodium POC Potassium Potassium 3.1 L POC Chloride Chloride POC Total CO2 Anion Gap POC BUN BUN 25 H Creatinine 1.6 H POC Creatinine Glucose POC Glucose Calcium 6.7 L POC WB Ioniz Calcium Magnesium Total Bilirubin 1.2 H Direct Bilirubin 0.4 H Total Protein 5.4 L Albumin 2.7 L Globulin Albumin/Globulin Ratio Urine Protein Urine Occult Blood Urine Urobilinogen Ur Leukocyte Esterase Urine RBC Urine WBC Hyaline Casts 03/22/18 03/22/18 03/22/18 10:25 06:00 03:00 WBC RBC Hgb Hct POC Hct MCV MCH RDW Gran % Lymph % (Auto) Gran # Lymph # (Auto) Ray # (Auto) Seg Neutrophils % Lymphocytes % RBC Morphology Hypochromasia Anisocytosis Microcytosis VBG Lactic Acid < 0.2 L 2.4 H Sodium POC Potassium Potassium POC Chloride Chloride 95 L POC Total CO2 Anion Gap POC BUN BUN 26 H Creatinine 1.8 H POC Creatinine Glucose 134 H POC Glucose Calcium 7.3 L POC WB Ioniz Calcium Magnesium 1.1 L Total Bilirubin 1.2 H Direct Bilirubin 0.4 H Total Protein Albumin 2.2 L Globulin 3.9 H Albumin/Globulin Ratio 0.6 L Urine Protein Urine Occult Blood Urine Urobilinogen Ur Leukocyte Esterase Urine RBC Urine WBC Hyaline Casts 03/22/18 03/22/18 03/21/18 03:00 03:00 23:40 WBC 27.5 H RBC 3.48 L Hgb 8.4 L Hct 26.7 L POC Hct MCV 76.9 L MCH 24.2 L RDW 22.4 H Gran % Lymph % (Auto) Gran # Lymph # (Auto) Ray # (Auto) Seg Neutrophils % 95 H Lymphocytes % 1 L RBC Morphology Abnorm A Hypochromasia 1+ A Anisocytosis 2+ A Microcytosis 1+ A VBG Lactic Acid 2.8 H Sodium POC Potassium Potassium POC Chloride Chloride POC Total CO2 Anion Gap POC BUN BUN Creatinine POC Creatinine Glucose POC Glucose Calcium POC WB Ioniz Calcium Magnesium Total Bilirubin Direct Bilirubin Total Protein Albumin Globulin Albumin/Globulin Ratio Urine Protein 30 A Urine Occult Blood 0.03 A Urine Urobilinogen 2.0 A Ur Leukocyte Esterase 500 A Urine RBC 6 H Urine WBC 88 H Hyaline Casts 9 H 03/21/18 03/21/18 03/21/18 23:00 22:35 22:35 WBC 25.6 H RBC 3.73 L Hgb 9.1 L Hct 28.7 L POC Hct MCV 77.1 L MCH 24.4 L RDW 23.1 H Gran % 92.8 H Lymph % (Auto) 1.9 L Gran # 23.7 H Lymph # (Auto) 0.5 L Ray # (Auto) 1.3 H Seg Neutrophils % Lymphocytes % RBC Morphology Hypochromasia Anisocytosis Microcytosis VBG Lactic Acid 5.3 H* Sodium 130 L POC Potassium Potassium 3.1 L POC Chloride Chloride 87 L POC Total CO2 Anion Gap 20.0 H POC BUN BUN 26 H Creatinine 1.8 H POC Creatinine Glucose 145 H POC Glucose Calcium 8.2 L POC WB Ioniz Calcium Magnesium Total Bilirubin 1.4 H Direct Bilirubin Total Protein Albumin 2.6 L Globulin 4.5 H Albumin/Globulin Ratio 0.6 L Urine Protein Urine Occult Blood Urine Urobilinogen Ur Leukocyte Esterase Urine RBC Urine WBC Hyaline Casts 03/21/18 22:35 WBC RBC Hgb Hct POC Hct 29.0 L MCV MCH RDW Gran % Lymph % (Auto) Gran # Lymph # (Auto) Ray # (Auto) Seg Neutrophils % Lymphocytes % RBC Morphology Hypochromasia Anisocytosis Microcytosis VBG Lactic Acid Sodium POC Potassium 3.0 L Potassium POC Chloride 94 L Chloride POC Total CO2 21 L Anion Gap POC BUN 24 H BUN Creatinine POC Creatinine 1.7 H Glucose POC Glucose 144 H Calcium POC WB Ioniz Calcium 0.91 L Magnesium Total Bilirubin Direct Bilirubin Total Protein Albumin Globulin Albumin/Globulin Ratio Urine Protein Urine Occult Blood Urine Urobilinogen Ur Leukocyte Esterase Urine RBC Urine WBC Hyaline Casts Meds: Medications Acetaminophen (Tylenol) 650 mg PO Q6HP PRN PRN Reason: PAIN/FEVER > 101 Hydromorphone HCl (Dilaudid) 0.5 mg IV Q2HP PRN PRN Reason: PAIN LEVEL > 6 Sodium Chloride (Sodium Chloride 0.9%) 1,000 mls @ 100 mls/hr IV .Q10H [facility] Last Admin: 03/23/18 00:17 Dose: 100 mls/hr Piperacillin Sod/Tazobactam (Sod 3.375 gm/ Dextrose) 50 mls @ 100 mls/hr IV Q6H [facility] Last Admin: 03/23/18 05:56 Dose: 100 mls/hr Vancomycin HCl 1,000 mg/ (Sodium Chloride) 250 mls @ 250 mls/hr IV DAILY [facility] Last Infusion: 03/22/18 14:15 Dose: Infused Ondansetron HCl (Zofran) 4 mg IV Q4-6HP PRN PRN Reason: Nausea And Vomiting Pantoprazole Sodium (Protonix) 40 mg IV BIDAC [facility] Last Admin: 03/22/18 17:19 Dose: 40 mg Sodium Chloride (Saline Flush) 10 ml IV Q8 [facility] Last Admin: 03/23/18 00:11 Dose: 10 ml Vancomycin HCl (Vancomycin Per Pharmacy) 1 order IV [facility] [place] Medical - PN: A/P - Time Spent With Patient Total time spent is greater than 50% in coordination of care (as documented) at patient's floor/unit and/or counseling patient: - Narrative A/P Narrative: Septic shock. He has systemic inflammatory response with presumptive infection , septic shock as indicated by hypoperfusion/organ dysfunction with lactate greater than 4 (though may in part be a bit artifactual due to decreased clearance by the liver). -lactate has cleared. Abdominal ultrasound without evidence of acute cholecystitis. Plan: Continue with broad-spectrum antibiotics, follow cultures. vancomycin/ Zosyn to Rocephin SBP: with SAAG<1.1, >250PMN's Plan: cont Rocephin UTI: abx Acute kidney injury vs likely CKD: 1.6<1.8. No old records, patient has no known history of kidney disease. No change after fluids. Query whether this may be baseline actually. Plan: Follow creatinine. Acute hypoxemic respiratory failure with h/o COPD. Patient became mildly hypoxic after presentation in the ED, then required supplemental oxygen. Plan: now on room air, cxr on admit unremarkable Cirrhosis with ascites (etoh etiology). Status post 5200cc removed 11/19. Studies c/w spb. was off home diuretics Plan: Follow-up paracentesis results, albumin 25 g IV every 8 hours 3 doses, restart diuretics as BP allows Coagulopathy. Likely secondary to chronic liver disease. Plan: monitor Hypokalemia: replace Anemia, acute on likely chronic: no gross bleeding/hematemesis, loose stool per nurse, no abdominal pain -6.4<8.4<9.1 Plan: FOBT if negative repeat CT abd r/o retroperi bleed, T&C and 1prb transfusion, f/u H&H Peptic ulcer disease. No evidence of active bleeding. Plan: Continue PPI Medical - PN: Qual - VTE Deep Vein Thrombosis/Pulmonary Embolism Present on Admission: No
[2018-03-23] MEDS: cefTRIAXone 2 GM in DEXTROSE 5% IN WATER 50 ML IV SCH (07:51)
[2018-03-23] MEDS: PANTOPRAZOLE 40 MG VIAL IV SCH ×2 (07:51→17:20)
[2018-03-23] MEDS ORDERED: 0.9 % SODIUM CHLORIDE 250 ML IV SCH (09:15)
--- NOTE | 2018-03-23 11:08 | Cat Scan Report ---
CLINICAL INFORMATION: Acute anemia. Possible retroperitoneal hemorrhage COMPARISON: Previous examination dated 03/22/2018 TECHNIQUE: Axial images were obtained through the abdomen and pelvis. Sagittally and coronally reformatted images. FINDINGS: Small bilateral pleural effusions. These are new since 03/22/2018. Lung bases are negative. No significant pericardial effusion. Abnormal liver. Liver is mildly nodular in contour and small. There is moderate ascites. Ascites is decreased since previous examination but not resolved. Patient did undergo ultrasound-guided paracentesis on 03/22/2018. Moderate ascites is residual or recurrent. No focal intrahepatic abnormality identified on noncontrast enhanced examination. Gallbladder is present. There are calcified gallstones. There is no retroperitoneal hematoma. Psoas muscles are negative. JOCELYNE values of the ascitic fluid are consistent with benign ascites and not with acute hemorrhage. 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 I am not given a history of hematemesis. Spleen is not significantly enlarged. Pancreas, adrenal glands, kidneys remain negative. Again demonstrated is a nonobstructing left renal calculus. No hydronephrosis. No intra-abdominal abscess. No pneumoperitoneum. No biliary or portal venous gas. No pneumatosis. No acute lumbar compression fracture. No sacral or pelvic fracture. IMPRESSION: 1. Residual or recurrent ascites. 2. No retroperitoneal hemorrhage. No intra-abdominal hematoma. 3. Findings remain consistent with cirrhosis. No intrahepatic abnormality. 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 Interpreted and Authenticated by: Jacinto Dacosta 03/23/18
[2018-03-23] MEDS ORDERED: IPRATROPIUM/ALBUTEROL 3 ML AMPUL.NEB NEB PRN (11:41)
[2018-03-23] MEDS ORDERED: FUROSEMIDE 20 MG/2 ML VIAL IV ONE (11:42)
[2018-03-23] MEDS ORDERED: ALBUTEROL SULFATE 1 PUFF INHALER INH PRN (12:14)
[2018-03-23 14:09] LABS: Ferritin 61.3 ng/ml (30-400)
[2018-03-23 14:10] LABS: Retic Absolute 1.5 % (0.5-1.5)
[2018-03-23] MEDS: IRON POLYSACCHARIDE COMPLEX 150 MG CAPSULE PO SCH (19:59)
[2018-03-23] MEDS: HYDROmorphone 2 MG/ML VIAL IV PRN (20:02)
[2018-03-24] MEDS: HYDROmorphone 2 MG/ML VIAL IV PRN (02:29)
[2018-03-24 05:36] LABS: Basophils # (Auto) 0 K/mcL (0.0-0.3); Basophils % (Auto) 0.3 % (0.0-2.0); Eosinophils # (Auto) 0.1 K/mcL (0.0-0.7); Eosinophils % (Auto) 0.4 % (0.0-7.0); Granulocytes % (Auto) 90.3 % (38.0-78.0); Lymphocytes # (Auto) 0.5 K/mcL (1.5-4.8); Lymphocytes % (Auto) 3.7 % (15.5-49.0); Mean Cell Volume 76.9 fL (80.0-100.0); Mean Corpuscular HGB Conc 31.8 g/dL (31.0-36.0); Mean Corpuscular Hemoglobin 24.5 pg (26.0-34.0); Monocytes # (Auto) 0.8 K/mcL (0.1-0.9); Monocytes % (Auto) 5.3 % (1.0-12.0); Platelet Count 184 K/mcL (140-440); RBC 2.96 M/mcL (4.50-5.90); Red Cell Distribution Width 21.5 % (11.5-14.5)
[2018-03-24 05:53] LABS: Blood Urea Nitrogen 22 mg/dl (6-20)
[2018-03-24] MEDS: 0.9 % SODIUM CHLORIDE 10 ML SYRINGE IV SCH ×4 (05:56→20:48)
[2018-03-24] MEDS ORDERED: OMEPRAZOLE 20 MG CAPSULE PO SCH (07:30)
--- NOTE | 2018-03-24 07:42 | Internal Med Progress Note ---
Medical - PN: Subj Patient information: Note initiated : 03/24/18 at 7:34 am Service Date, if different from initiated Date: [] Patient: Sergey Monaco a 62 y/o M admitted on 03/22/18 for Suspects Abd Infection/ Septic Shock. Chief Complaint: [] Interval history: Mr. Monaco is a 62 year old M with a history of cirrhosis and ascites, COPD which is generally mild, treated peptic ulcer disease who presents to the ED with abdominal pain. History is obtained speaking with the patient, reviewing minimal old records, discussing with the ED staff. Patient states he started having abdominal pain about 2 weeks ago. It waxes and wanes in nature. It is achy in character. It was worse today after about 6 PM. Is up to 10/10 in intensity, again would wax and wane. It was throughout his abdomen, though it seems worse in the right upper abdomen. He's not had fever he knows of, though he felt chills when he arrived at the hospital. There is no associated nausea or vomiting, no diarrhea. There is no change in the pain with food. He does have a history of peptic ulcer disease with heartburn symptoms, he's had none of that associated with the current pain , and he continues to take twice daily omeprazole. Approximately a week before the onset of the symptoms, he ran out a couple of his diuretics (presumably spironolactone and furosemide given his history of significant ascites and he states he was on diuretics to control his abdominal swelling). Since that time he's had slowly increased abdominal swelling and distention. As noted the patient presented to the ED, or evaluation reveals a white count of 25,000, acute kidney injury with creatinine 1.8, elevated lactate of 5.3, elevated INR 1.4. Patient is being admitted to the hospital for the treatment of sepsis from presumptive abdominal source. Urine is also possible source with pyuria and positive leukocyte esterase on specimen, however there is no bacteria on microscopic. 9/10 Late AM -Was feeling improved after fluids this morning -Status post large volume paracentesis with diagnostic studies pending -CT abdomen with cholelithiasis, no changes consistent with acute cholecystitis , no other onions other than ascites -Hepatic ultrasound without acute cholecystitis -Differential diagnosis for source of sepsis include urine, SBP or other abdominal process -Antibiotics expanded as white count has increased to 27,000, vancomycin added to Zosyn -Albumin post-paracentesis ordered -Remains hemodynamically stable 03/23 no new complaints. Does have abdominal pain but better when it was especially since the paracentesis. Denies any hematemesis or bloody stools, he had one loose stool last night has not had any since then. No bruising 03/24 feeling much better today. Continue abdominal discomfort but baseline for him. Review of Systems: denies headache/fever/chills/nausea/vomiting/chest or abdominal pain/cough/ dyspnea. Otherwise see above. - Constitutional Vitals: Vital Signs Temp Pulse Resp BP Pulse Ox 98.9 F 80 19 116/66 94 03/24/18 06:01 03/24/18 06:01 03/24/18 06:01 03/24/18 06:01 03/24/18 06:01 Period Temp Pulse Resp BP Sys/[place] Pulse Ox Last 24 Hr 98.1 F-99.9 F 67-108 14-26 85-125/51-77 86-100 Intake and Output 03/23/18 03/24/18 03/24/18 21:59 05:59 13:59 Intake Total 350 / 350 600 / 600 Output Total 495 / 495 317 / 317 40 / 40 Balance -145 / -145 283 / 283 -40 / -40 Weight 71.078 kg Intake & Output: Intake & Output 03/23/18 03/24/18 03/24/18 21:59 05:59 13:59 Intake Total 350 / 350 600 / 600 Output Total 495 / 495 317 / 317 40 / 40 Balance -145 / -145 283 / 283 -40 / -40 Weight 71.078 kg Intake: IV 0 / 0 Oral 350 / 350 600 / 600 Output: Urine Catheter Amount 245 / 245 317 / 317 40 / 40 Stool 250 / 250 Other: Meal Dinner Nourishment/Supplement Percent of Meal Consumed 75% 100% Feeding Ability Assist with Tray Set Up Independent Urine Appearance Clear Uretheral (Sanchez) Cloudy Urine Color Light Ashley Light Ashley Light Ashley Uretheral (Sanchez) Light Ashley Light Ashley Stool Size Moderate Small Stool Color Brown Brown Stool Consistency Loose Loose # Bowel Movements 1 1 Exam: General: Alert, Awake, No acute Distress HEENT: EOMI, CV: RRR, normal s1/s2 Pulm: Clear b/l, no wheezing/rhonchi/rales Abd: distended, generalized tenderness but overall, +BS x4 Ext: no clubbing/cyanosis/edema Neuro: Alert, no focal deficits, moves all extremities Skin: warm/dry Medical - PN: Obj Da - Labs CBC & Chem 7: 03/24/18 04:00 03/24/18 04:00 Labs: Abnormal Lab Results 03/24/18 03/24/18 03/24/18 04:00 04:00 04:00 WBC 14.4 H RBC 2.96 L Hgb 7.2 L Hct 22.7 L POC Hct MCV 76.9 L MCH 24.5 L RDW 21.5 H Gran % 90.3 H Lymph % (Auto) 3.7 L Gran # 13.0 H Lymph # (Auto) 0.5 L [place] # (Auto) Seg Neutrophils % Lymphocytes % RBC Morphology Hypochromasia Anisocytosis Microcytosis PT 18.1 H INR 1.5 H VBG Lactic Acid Sodium POC Potassium Potassium 3.1 L POC Chloride Chloride POC Total CO2 Anion Gap POC BUN BUN 22 H Creatinine 1.4 H POC Creatinine Glucose 109 H POC Glucose Calcium 7.0 L POC WB Ioniz Calcium Magnesium Iron TIBC Transferrin % Sat Total Bilirubin Direct Bilirubin Total Protein Albumin Globulin Albumin/Globulin Ratio Urine Protein Urine Occult Blood Urine Urobilinogen Ur Leukocyte Esterase Urine RBC Urine WBC Hyaline Casts 03/23/18 03/23/18 03/23/18 16:55 07:55 06:18 WBC RBC Hgb 7.1 L 6.4 L* Hct 22.0 L 20.2 L* POC Hct MCV MCH RDW Gran % Lymph % (Auto) Gran # Lymph # (Auto) [place] # (Auto) Seg Neutrophils % Lymphocytes % RBC Morphology Hypochromasia Anisocytosis Microcytosis PT 19.6 H INR 1.6 H VBG Lactic Acid Sodium POC Potassium Potassium POC Chloride Chloride POC Total CO2 Anion Gap POC BUN BUN Creatinine POC Creatinine Glucose POC Glucose Calcium POC WB Ioniz Calcium Magnesium Iron TIBC Transferrin % Sat Total Bilirubin Direct Bilirubin Total Protein Albumin Globulin Albumin/Globulin Ratio Urine Protein Urine Occult Blood Urine Urobilinogen Ur Leukocyte Esterase Urine RBC Urine WBC Hyaline Casts 03/23/18 03/23/18 03/23/18 03:47 03:47 03:47 WBC 20.7 H RBC 2.58 L Hgb 6.5 L* Hct 19.9 L* POC Hct MCV 77.4 L MCH 25.2 L RDW 22.5 H Gran % 92.5 H Lymph % (Auto) 2.5 L Gran # 19.1 H Lymph # (Auto) 0.5 L [place] # (Auto) 1.0 H Seg Neutrophils % Lymphocytes % RBC Morphology Hypochromasia Anisocytosis Microcytosis PT INR VBG Lactic Acid Sodium POC Potassium Potassium 3.1 L POC Chloride Chloride POC Total CO2 Anion Gap POC BUN BUN 25 H Creatinine 1.6 H POC Creatinine Glucose POC Glucose Calcium 6.7 L POC WB Ioniz Calcium Magnesium Iron 14 L TIBC 144 L Transferrin % Sat 9 L Total Bilirubin 1.2 H Direct Bilirubin 0.4 H Total Protein 5.4 L Albumin 2.7 L Globulin Albumin/Globulin Ratio Urine Protein Urine Occult Blood Urine Urobilinogen Ur Leukocyte Esterase Urine RBC Urine WBC Hyaline Casts 03/22/18 03/22/18 03/22/18 10:25 06:00 03:00 WBC RBC Hgb Hct POC Hct MCV MCH RDW Gran % Lymph % (Auto) Gran # Lymph # (Auto) [place] # (Auto) Seg Neutrophils % Lymphocytes % RBC Morphology Hypochromasia Anisocytosis Microcytosis PT INR VBG Lactic Acid < 0.2 L 2.4 H Sodium POC Potassium Potassium POC Chloride Chloride 95 L POC Total CO2 Anion Gap POC BUN BUN 26 H Creatinine 1.8 H POC Creatinine Glucose 134 H POC Glucose Calcium 7.3 L POC WB Ioniz Calcium Magnesium 1.1 L Iron TIBC Transferrin % Sat Total Bilirubin 1.2 H Direct Bilirubin 0.4 H Total Protein Albumin 2.2 L Globulin 3.9 H Albumin/Globulin Ratio 0.6 L Urine Protein Urine Occult Blood Urine Urobilinogen Ur Leukocyte Esterase Urine RBC Urine WBC Hyaline Casts 03/22/18 03/22/18 03/21/18 03:00 03:00 23:40 WBC 27.5 H RBC 3.48 L Hgb 8.4 L Hct 26.7 L POC Hct MCV 76.9 L MCH 24.2 L RDW 22.4 H Gran % Lymph % (Auto) Gran # Lymph # (Auto) [place] # (Auto) Seg Neutrophils % 95 H Lymphocytes % 1 L RBC Morphology Abnorm A Hypochromasia 1+ A Anisocytosis 2+ A Microcytosis 1+ A PT INR VBG Lactic Acid 2.8 H Sodium POC Potassium Potassium POC Chloride Chloride POC Total CO2 Anion Gap POC BUN BUN Creatinine POC Creatinine Glucose POC Glucose Calcium POC WB Ioniz Calcium Magnesium Iron TIBC Transferrin % Sat Total Bilirubin Direct Bilirubin Total Protein Albumin Globulin Albumin/Globulin Ratio Urine Protein 30 A Urine Occult Blood 0.03 A Urine Urobilinogen 2.0 A Ur Leukocyte Esterase 500 A Urine RBC 6 H Urine WBC 88 H Hyaline Casts 9 H 03/21/18 03/21/18 03/21/18 23:00 22:35 22:35 WBC 25.6 H RBC 3.73 L Hgb 9.1 L Hct 28.7 L POC Hct MCV 77.1 L MCH 24.4 L RDW 23.1 H Gran % 92.8 H Lymph % (Auto) 1.9 L Gran # 23.7 H Lymph # (Auto) 0.5 L [place] # (Auto) 1.3 H Seg Neutrophils % Lymphocytes % RBC Morphology Hypochromasia Anisocytosis Microcytosis PT INR VBG Lactic Acid 5.3 H* Sodium 130 L POC Potassium Potassium 3.1 L POC Chloride Chloride 87 L POC Total CO2 Anion Gap 20.0 H POC BUN BUN 26 H Creatinine 1.8 H POC Creatinine Glucose 145 H POC Glucose Calcium 8.2 L POC WB Ioniz Calcium Magnesium Iron TIBC Transferrin % Sat Total Bilirubin 1.4 H Direct Bilirubin Total Protein Albumin 2.6 L Globulin 4.5 H Albumin/Globulin Ratio 0.6 L Urine Protein Urine Occult Blood Urine Urobilinogen Ur Leukocyte Esterase Urine RBC Urine WBC Hyaline Casts 03/21/18 22:35 WBC RBC Hgb Hct POC Hct 29.0 L MCV MCH RDW Gran % Lymph % (Auto) Gran # Lymph # (Auto) [place] # (Auto) Seg Neutrophils % Lymphocytes % RBC Morphology Hypochromasia Anisocytosis Microcytosis PT INR VBG Lactic Acid Sodium POC Potassium 3.0 L Potassium POC Chloride 94 L Chloride POC Total CO2 21 L Anion Gap POC BUN 24 H BUN Creatinine POC Creatinine 1.7 H Glucose POC Glucose 144 H Calcium POC WB Ioniz Calcium 0.91 L Magnesium Iron TIBC Transferrin % Sat Total Bilirubin Direct Bilirubin Total Protein Albumin Globulin Albumin/Globulin Ratio Urine Protein Urine Occult Blood Urine Urobilinogen Ur Leukocyte Esterase Urine RBC Urine WBC Hyaline Casts Meds: Medications Acetaminophen (Tylenol) 650 mg PO Q6HP PRN PRN Reason: PAIN/FEVER > 101 Last Admin: 03/23/18 12:02 Dose: 650 mg Albuterol Sulfate (Ventolin) 1 puff INH Q4HP PRN PRN Reason: Dyspnea Albuterol/Ipratropium (Duoneb) 3 ml NEB Q4HP PRN PRN Reason: Shortness Of Breath Last Admin: 03/23/18 11:56 Dose: 3 ml Hydromorphone HCl (Dilaudid) 0.5 mg IV Q2HP PRN PRN Reason: PAIN LEVEL > 6 Last Admin: 03/24/18 02:29 Dose: 0.5 mg Ceftriaxone Sodium 2 gm/ (Dextrose) 50 mls @ 100 mls/hr IV Q24H [facility] Last Infusion: 03/23/18 08:21 Dose: Infused Omeprazole (Prilosec) 20 mg PO QAMAC [facility] Last Admin: 03/24/18 07:18 Dose: 20 mg Ondansetron HCl (Zofran) 4 mg IV Q4-6HP PRN PRN Reason: Nausea And Vomiting Pantoprazole Sodium (Protonix) 40 mg IV BIDAC [facility] Last Admin: 03/23/18 17:20 Dose: 40 mg Polysaccharide Iron Complex (Ferrex 150) 150 mg PO BID [facility] Last Admin: 03/23/18 19:59 Dose: 150 mg Sodium Chloride (Saline Flush) 10 ml IV Q8 [facility] Last Admin: 03/24/18 05:56 Dose: 10 ml Medical - PN: A/P - Time Spent With Patient Total time spent is greater than 50% in coordination of care (as documented) at patient's floor/unit and/or counseling patient: - Narrative A/P Narrative: Septic shock: Resolved, lactate has cleared. Abdominal ultrasound without evidence of acute cholecystitis. 2/2 SBP. leukocytosis improving Plan: Continue with broad-spectrum antibiotics, follow cultures. vancomycin/ Zosyn to Rocephin SBP: with SAAG<1.1, >250PMN's; no growth on cx Plan: cont Rocephin UTI: abx RONNELL on likely CKD: 1.4<1.6<1.8. No old records, patient has no known history of kidney disease. No change after fluids. Query whether this may be baseline actually. Plan: Follow creatinine. Acute hypoxemic respiratory failure with h/o COPD. Patient became mildly hypoxic after presentation in the ED, then required supplemental oxygen. Plan: now on room air, cxr on admit unremarkable Cirrhosis w/ascites (etoh etiology). Status post 5200cc removed 11/19. Studies c/w spb. was off home diuretics Plan: Follow-up paracentesis results, albumin 25 g IV every 8 hours 3 doses, restart diuretics as BP allows but will need close f/u given CKD, may only start lasix for now Coagulopathy. secondary to chronic liver disease. Plan: monitor Hypokalemia: replace Anemia, acute on chronic, LUKAS: no gross bleeding/hematemesis, loose stool per nurse, no abdominal pain -7.2<(1prbc 03/23)6.4<8.4<9.1; rectal exam no gross blood, FOBT negative x2, repeat CT abd r/o unremarkable Plan: iron supp started, f/u H&H Peptic ulcer disease. No evidence of active bleeding. Plan: Continue PPI ppx: SCD Medical - PN: Qual - VTE Deep Vein Thrombosis/Pulmonary Embolism Present on Admission: No
[2018-03-24] MEDS ORDERED: POTASSIUM CHLORIDE 20 MEQ TABLET PO SCH ×2 (08:00→17:30)
[2018-03-24] MEDS ORDERED: FUROSEMIDE 40 MG TABLET PO SCH (09:00)
[2018-03-24] MEDS: PANTOPRAZOLE 40 MG VIAL IV SCH (09:14)
[2018-03-24] MEDS: IRON POLYSACCHARIDE COMPLEX 150 MG CAPSULE PO SCH (09:27)
[2018-03-24] MEDS: cefTRIAXone 2 GM in DEXTROSE 5% IN WATER 50 ML IV SCH (09:27)
--- NOTE | 2018-03-24 11:39 | Discharge Summary ---
Medical - DS: Prov Patient information: Note initiated : 03/24/18 at 11:39 am Service Date, if different from initiated Date: [] Patient: Sergey Monaco 62 y/o M admitted on 03/22/18 for Suspects Abd Infection/ Septic Shock. Chief Complaint: [] Date of admission: 03/22/18 01:34 Discharge date: 03/25/18 Primary care physician: Markus Fernandez Medical - DS: Meds - Discharge Medications Prescriptions: Cefdinir 300 mg PO BID #10 cap Furosemide [Lasix] 40 mg PO DAILY #30 tab Iron Polysaccharide Complex [Ferrex 150] 150 mg PO BID #60 cap Active and Home Medications: Home Medications Albuterol Sulfate [Ventolin] 1 puff INH Q8HP PRN 03/22/18 [History Confirmed 05/30 Last Taken 03/21/18 08:00] Omeprazole [Prilosec] 20 cap PO QAMAC 03/22/18 [History Confirmed 03/23/18 Last Taken 03/21/18 08:00] Sennosides/Docusate Sodium [Stool Softener Tablet] 1 each PO DAILY 03/22/18 [ History Last Taken 03/21/18 08:00] Multivit,Ther Iron,Ca,FA & Min [Multivitamin W/Minerals] 1 tab PO DAILY [History Confirmed 03/23/18 Last Taken Unknown] Vitamin D3 2,000 unit PO DAILY 03/23/18 [History Confirmed 03/23/18 Last Taken Unknown] Medical - DS: Hosp Hospital course: Mr. Monaco is a 62 year old M with a history of cirrhosis and ascites, COPD which is generally mild, treated peptic ulcer disease who presents to the ED with abdominal pain. History is obtained speaking with the patient, reviewing minimal old records, discussing with the ED staff. Patient states he started having abdominal pain about 2 weeks ago. It waxes and wanes in nature. It is achy in character. It was worse today after about 6 PM. Is up to 10/10 in intensity, again would wax and wane. It was throughout his abdomen, though it seems worse in the right upper abdomen. He's not had fever he knows of, though he felt chills when he arrived at the hospital. There is no associated nausea or vomiting, no diarrhea. There is no change in the pain with food. He does have a history of peptic ulcer disease with heartburn symptoms, he's had none of that associated with the current pain , and he continues to take twice daily omeprazole. Approximately a week before the onset of the symptoms, he ran out a couple of his diuretics (presumably spironolactone and furosemide given his history of significant ascites and he states he was on diuretics to control his abdominal swelling). Since that time he's had slowly increased abdominal swelling and distention. As noted the patient presented to the ED, or evaluation reveals a white count of 25,000, acute kidney injury with creatinine 1.8, elevated lactate of 5.3, elevated INR 1.4. Patient is being admitted to the hospital for the treatment of sepsis from presumptive abdominal source. Urine is also possible source with pyuria and positive leukocyte esterase on specimen, however there is no bacteria on microscopic. 03/22 Late AM -Was feeling improved after fluids this morning -Status post large volume paracentesis with diagnostic studies pending -CT abdomen with cholelithiasis, no changes consistent with acute cholecystitis , no other onions other than ascites -Hepatic ultrasound without acute cholecystitis -Differential diagnosis for source of sepsis include urine, SBP or other abdominal process -Antibiotics expanded as white count has increased to 27,000, vancomycin added to Zosyn -Albumin post-paracentesis ordered -Remains hemodynamically stable 03/23 no new complaints. Does have abdominal pain but better when it was especially since the paracentesis. Denies any hematemesis or bloody stools, he had one loose stool last night has not had any since then. No bruising 03/24 feeling much better today. Continue abdominal discomfort but baseline for him. Discharge diagnosis: SBP severe sepsis UTI acute on chronic kidney disease respiratory failure Secondary discharge diagnosis: Cirrhosis coagulopathy hypokalemia anemia - Time Spent with Patient Total time spent providing and/or coordinating discharge services: Greater than 30 minutes Medical - DS: Exam - Constitutional Vitals: Vital Signs Temp Pulse Resp BP Pulse Ox 03/24/18 10:00 99.8 F H 20 129/68 94 03/24/18 09:00 99.4 F H 80 17 120/64 93 03/24/18 08:01 99.5 F H 78 21 111/57 93 03/24/18 07:04 94 03/24/18 07:02 98.6 F 86 19 106/59 94 03/24/18 06:01 98.9 F 80 19 116/66 94 03/24/18 05:01 98.8 F 77 18 113/65 98 03/24/18 04:01 98.7 F 82 20 115/64 95 03/24/18 03:01 98.4 F 84 19 104/73 95 03/24/18 02:01 98.4 F 67 17 109/56 97 03/24/18 02:00 94 03/24/18 01:01 98.3 F 75 18 98/58 97 03/24/18 00:01 98.1 F 84 17 116/62 97 03/23/18 23:01 98.1 F 78 17 105/54 94 03/23/18 22:01 98.1 F 80 19 90/54 96 03/23/18 21:33 98.2 F 80 20 86 L 03/23/18 21:01 98.3 F 78 20 101/57 90 03/23/18 20:01 98.5 F 86 18 112/77 98 03/23/18 19:01 98.3 F 85 21 99/54 95 03/23/18 18:43 98.1 F 91 H 16 97 03/23/18 18:01 98.3 F 88 14 97/56 95 03/23/18 17:01 98.5 F 86 22 86/52 95 03/23/18 17:00 98.5 F 86 20 88/55 94 03/23/18 16:00 98.9 F 92 H 14 96/67 95 03/23/18 15:16 99.2 F H 94 H 17 100/54 92 03/23/18 15:12 99.2 F H 93 H 20 85/56 92 03/23/18 14:01 99.2 F H 91 H 22 91/51 93 03/23/18 14:00 95 03/23/18 13:50 99.2 F H 89 21 105/56 92 03/23/18 13:31 99.2 F H 98 H 26 H 96/67 93 03/23/18 13:01 99.5 F H 91 H 22 94/56 93 03/23/18 12:47 99.3 F H 03/23/18 12:31 99.7 F H 102 H 25 H 104/61 95 03/23/18 12:02 99.9 F H 03/23/18 12:01 99.9 F H 94 H 18 111/60 100 03/23/18 11:55 105 H 18 Intake and Output 03/23/18 03/24/18 03/24/18 21:59 05:59 13:59 Intake Total 350 / 350 600 / 600 170 / 170 Output Total 495 / 495 317 / 317 160 / 160 Balance -145 / -145 283 / 283 10 10 Intake: IV 0 / 0 50 / 50 Rocephin 2 gm In Dextrose 5% in 50 / 50 Water 50 ml @ 100 mls/hr IV Q24H [facility] Rx#:[id number] Oral 350 / 350 600 / 600 120 / 120 Output: Urine Catheter Amount 245 / 245 317 / 317 160 / 160 Stool 250 / 250 Other: Meal Dinner Nourishment/Supplement Percent of Meal Consumed 75% 100% Feeding Ability Assist with Tray Set Up Independent Urine Appearance Clear Clear Uretheral (Sanchez) Cloudy Clear Urine Color Light Ashley Light Ashley Light Ashley Uretheral (Sanchez) Light Ashley Light Ashley Light Ashley Stool Size Moderate Small Stool Color Brown Brown Stool Consistency Loose Loose # Bowel Movements 1 1 Weight 71.078 kg Medical - DS: Data Labs on day of discharge: Labs from last 24 hours 03/24/18 03/24/18 03/24/18 04:00 04:00 04:00 WBC 14.4 H RBC 2.96 L Hgb 7.2 L Hct 22.7 L MCV 76.9 L MCH 24.5 L MCHC 31.8 RDW 21.5 H Plt Count 184 MPV 9.4 Gran % 90.3 H Lymph % (Auto) 3.7 L [place] % (Auto) 5.3 Eos % (Auto) 0.4 Baso % (Auto) 0.3 Gran # 13.0 H Lymph # (Auto) 0.5 L [place] # (Auto) 0.8 Eos # (Auto) 0.1 Baso # (Auto) 0 Absolute Retic PT 18.1 H INR 1.5 H Sodium 136 Potassium 3.1 L Chloride 102 Carbon Dioxide 24 Anion Gap 10.0 BUN 22 H Creatinine 1.4 H GFR Calculation 54 Glucose 109 H Calcium 7.0 L Iron TIBC Unsat Iron Binding Transferrin % Sat Ferritin 03/23/18 03/23/18 03/23/18 16:55 03:47 03:47 WBC RBC Hgb 7.1 L Hct 22.0 L MCV MCH MCHC RDW Plt Count MPV Gran % Lymph % (Auto) [place] % (Auto) Eos % (Auto) Baso % (Auto) Gran # Lymph # (Auto) [place] # (Auto) Eos # (Auto) Baso # (Auto) Absolute Retic 1.5 PT INR Sodium Potassium Chloride Carbon Dioxide Anion Gap BUN Creatinine GFR Calculation Glucose Calcium Iron 14 L TIBC 144 L Unsat Iron Binding 130 Transferrin % Sat 9 L Ferritin 61.3 Preliminary micro results at discharge 03/21/18 23:55 Blood Culture - Preliminary Blood 03/21/18 00:10 Blood Culture - Preliminary Blood 03/21/18 23:40 Urine Culture - Preliminary Urine - Clean Void [place] Coagulase negative staph Medical - DS: A/P - Patient/Caregiver Discharge Instructions Activity: increase activity as tolerated Diet: Low Sodium (2gm) Additional Instructions: Follow-up with Dr. Ding for cirrhosis Prescriptions: Cefdinir 300 mg PO BID #10 cap Furosemide [Lasix] 40 mg PO DAILY #30 tab Iron Polysaccharide Complex [Ferrex 150] 150 mg PO BID #60 cap - Follow up Plan Follow up with: Markus Fernandez ARNP [Primary Care Provider] - Sami Ding MD [Physician] - Disposition: Home, Self-Care Prognosis: Fair Rehab Potential: Fair Medical - DS: Qual - VTE Deep Vein Thrombosis/Pulmonary Embolism Present on Admission: No
[2018-03-24] MEDS ORDERED: HYDROmorphone 2 MG/ML VIAL IV PRN (11:45)
[2018-03-24] MEDS ORDERED: ONDANSETRON 4 MG/2 ML VIAL IV PRN (11:45)
[2018-03-24] MEDS ORDERED: ALBUTEROL SULFATE 1 PUFF INHALER INH PRN (11:45)
[2018-03-24] MEDS ORDERED: IPRATROPIUM/ALBUTEROL 3 ML AMPUL.NEB NEB PRN (11:45)
[2018-03-24] MEDS ORDERED: ACETAMINOPHEN 325 MG TABLET PO PRN (11:45)
[2018-03-24] MEDS ORDERED: IRON POLYSACCHARIDE COMPLEX 150 MG CAPSULE PO SCH (21:00)
[2018-03-25] MEDS: 0.9 % SODIUM CHLORIDE 10 ML SYRINGE IV SCH (05:29)
--- NOTE | 2018-03-25 07:02 | Internal Med Progress Note ---
Medical - PN: Subj Patient information: Note initiated : 03/25/18 at 7:00 am Service Date, if different from initiated Date: [] Patient: Sergey Monaco a 62 y/o M admitted on 03/22/18 for Suspects Abd Infection/ Septic Shock. Chief Complaint: [] Interval history: Mr. Monaco is a 62 year old M with a history of cirrhosis and ascites, COPD which is generally mild, treated peptic ulcer disease who presents to the ED with abdominal pain. History is obtained speaking with the patient, reviewing minimal old records, discussing with the ED staff. Patient states he started having abdominal pain about 2 weeks ago. It waxes and wanes in nature. It is achy in character. It was worse today after about 6 PM. Is up to 10/10 in intensity, again would wax and wane. It was throughout his abdomen, though it seems worse in the right upper abdomen. He's not had fever he knows of, though he felt chills when he arrived at the hospital. There is no associated nausea or vomiting, no diarrhea. There is no change in the pain with food. He does have a history of peptic ulcer disease with heartburn symptoms, he's had none of that associated with the current pain , and he continues to take twice daily omeprazole. Approximately a week before the onset of the symptoms, he ran out a couple of his diuretics (presumably spironolactone and furosemide given his history of significant ascites and he states he was on diuretics to control his abdominal swelling). Since that time he's had slowly increased abdominal swelling and distention. As noted the patient presented to the ED, or evaluation reveals a white count of 25,000, acute kidney injury with creatinine 1.8, elevated lactate of 5.3, elevated INR 1.4. Patient is being admitted to the hospital for the treatment of sepsis from presumptive abdominal source. Urine is also possible source with pyuria and positive leukocyte esterase on specimen, however there is no bacteria on microscopic. 9/10 Late AM -Was feeling improved after fluids this morning -Status post large volume paracentesis with diagnostic studies pending -CT abdomen with cholelithiasis, no changes consistent with acute cholecystitis , no other onions other than ascites -Hepatic ultrasound without acute cholecystitis -Differential diagnosis for source of sepsis include urine, SBP or other abdominal process -Antibiotics expanded as white count has increased to 27,000, vancomycin added to Zosyn -Albumin post-paracentesis ordered -Remains hemodynamically stable 03/23 no new complaints. Does have abdominal pain but better when it was especially since the paracentesis. Denies any hematemesis or bloody stools, he had one loose stool last night has not had any since then. No bruising 03/24 feeling much better today. Continue abdominal discomfort but baseline for him. 03/25 feeling well, no bleeding, H&H stable - Constitutional Vitals: Vital Signs Temp Pulse Resp BP Pulse Ox 98.3 F 93 H 14 123/73 94 03/25/18 06:57 03/25/18 04:00 03/25/18 06:57 03/25/18 06:57 03/25/18 06:57 Period Temp Pulse Resp BP Sys/[place] Pulse Ox Last 24 Hr 98.3 F-100.1 F 78-93 14-25 103-129/50-83 93-97 Intake and Output 03/24/18 03/25/18 03/25/18 21:59 05:59 13:59 Intake Total 560 / 560 240 / 240 Output Total 100 / 100 350 / 350 Balance 460 / 460 -110 / -110 Weight 72.121 kg Intake & Output: Intake & Output 03/24/18 03/25/18 03/25/18 21:59 05:59 13:59 Intake Total 560 / 560 240 / 240 Output Total 100 / 100 350 / 350 Balance 460 / 460 -110 / -110 Weight 72.121 kg Intake: Oral 560 / 560 240 / 240 Output: Urine Catheter Amount 100 / 100 Void Amount 350 / 350 Other: # Bowel Movements 1 Exam: General: Alert, Awake, No acute Distress HEENT: EOMI, CV: RRR, normal s1/s2 Pulm: Clear b/l, no wheezing/rhonchi/rales Abd: distended, generalized tenderness but overall, +BS x4 Ext: no clubbing/cyanosis/edema Neuro: Alert, no focal deficits, moves all extremities Skin: warm/dry Medical - PN: Obj Da - Labs CBC & Chem 7: 03/25/18 04:12 03/24/18 04:00 Labs: Abnormal Lab Results 03/25/18 03/24/18 03/24/18 04:12 04:00 04:00 WBC RBC Hgb 7.6 L Hct 23.9 L MCV MCH RDW Gran % Lymph % (Auto) Gran # Lymph # (Auto) [place] # (Auto) PT 18.1 H INR 1.5 H VBG Lactic Acid Potassium 3.1 L BUN 22 H Creatinine 1.4 H Glucose 109 H Calcium 7.0 L Iron TIBC Transferrin % Sat Total Bilirubin Direct Bilirubin Total Protein Albumin 03/24/18 03/23/18 03/23/18 04:00 16:55 07:55 WBC 14.4 H RBC 2.96 L Hgb 7.2 L 7.1 L Hct 22.7 L 22.0 L MCV 76.9 L MCH 24.5 L RDW 21.5 H Gran % 90.3 H Lymph % (Auto) 3.7 L Gran # 13.0 H Lymph # (Auto) 0.5 L [place] # (Auto) PT 19.6 H INR 1.6 H VBG Lactic Acid Potassium BUN Creatinine Glucose Calcium Iron TIBC Transferrin % Sat Total Bilirubin Direct Bilirubin Total Protein Albumin 03/23/18 03/23/18 03/23/18 06:18 03:47 03:47 WBC RBC Hgb 6.4 L* Hct 20.2 L* MCV MCH RDW Gran % Lymph % (Auto) Gran # Lymph # (Auto) [place] # (Auto) PT INR VBG Lactic Acid Potassium 3.1 L BUN 25 H Creatinine 1.6 H Glucose Calcium 6.7 L Iron 14 L TIBC 144 L Transferrin % Sat 9 L Total Bilirubin 1.2 H Direct Bilirubin 0.4 H Total Protein 5.4 L Albumin 2.7 L 03/23/18 03/22/18 03:47 10:25 WBC 20.7 H RBC 2.58 L Hgb 6.5 L* Hct 19.9 L* MCV 77.4 L MCH 25.2 L RDW 22.5 H Gran % 92.5 H Lymph % (Auto) 2.5 L Gran # 19.1 H Lymph # (Auto) 0.5 L [place] # (Auto) 1.0 H PT INR VBG Lactic Acid < 0.2 L Potassium BUN Creatinine Glucose Calcium Iron TIBC Transferrin % Sat Total Bilirubin Direct Bilirubin Total Protein Albumin Meds: Medications Acetaminophen (Tylenol) 650 mg PO Q6HP PRN PRN Reason: PAIN/FEVER > 101 Albuterol Sulfate (Ventolin) 1 puff INH Q4HP PRN PRN Reason: Dyspnea Albuterol/Ipratropium (Duoneb) 3 ml NEB Q4HP PRN PRN Reason: Shortness Of Breath Furosemide (Lasix) 40 mg PO DAILY [facility] Hydromorphone HCl (Dilaudid) 0.5 mg IV Q2HP PRN PRN Reason: PAIN LEVEL > 6 Ceftriaxone Sodium 2 gm/ (Dextrose) 50 mls @ 100 mls/hr IV Q24H [facility] Omeprazole (Prilosec) 20 mg PO QAMAC [facility] Last Admin: 03/25/18 06:44 Dose: 20 mg Ondansetron HCl (Zofran) 4 mg IV Q4-6HP PRN PRN Reason: Nausea And Vomiting Polysaccharide Iron Complex (Ferrex 150) 150 mg PO BID [facility] Last Admin: 03/24/18 20:48 Dose: 150 mg Sodium Chloride (Saline Flush) 10 ml IV Q8 [facility] Last Admin: 03/25/18 05:29 Dose: 10 ml Medical - PN: A/P - Time Spent With Patient Total time spent is greater than 50% in coordination of care (as documented) at patient's floor/unit and/or counseling patient: - Narrative A/P Narrative: Septic shock: Resolved, lactate has cleared. Abdominal ultrasound without evidence of acute cholecystitis. 2/2 SBP. leukocytosis improving Plan: Continue with broad-spectrum antibiotics, follow cultures. vancomycin/ Zosyn to Rocephin SBP: with SAAG<1.1, >250PMN's; no growth on cx Plan: cont Rocephin UTI: abx RONNELL on likely CKD: 1.4<1.6<1.8. No old records, patient has no known history of kidney disease. No change after fluids. Query whether this may be baseline actually. Plan: Follow creatinine. Acute hypoxemic respiratory failure with h/o COPD. Patient became mildly hypoxic after presentation in the ED, then required supplemental oxygen. Plan: now on room air, cxr on admit unremarkable Cirrhosis w/ascites (etoh etiology). Status post 5200cc removed 11/19. Studies c/w spb. was off home diuretics Plan: Follow-up paracentesis results, albumin 25 g IV every 8 hours 3 doses, restart diuretics as BP allows but will need close f/u given CKD, may only start lasix for now Coagulopathy. secondary to chronic liver disease. Plan: monitor Hypokalemia: replace Anemia, acute on chronic, LUKAS: no gross bleeding/hematemesis, loose stool per nurse, no abdominal pain -7.6<7.2<(1prbc 03/23)6.4<8.4<9.1; rectal exam no gross blood, FOBT negative x2, repeat CT abd r/o unremarkable Plan: iron supp started, f/u H&H Peptic ulcer disease. No evidence of active bleeding. Plan: Continue PPI ppx: SCD Medical - PN: Qual - VTE Deep Vein Thrombosis/Pulmonary Embolism Present on Admission: No
[2018-03-25] MEDS ORDERED: OMEPRAZOLE 20 MG CAPSULE PO SCH (07:30)
[2018-03-25] MEDS ORDERED: cefTRIAXone 2 GM in DEXTROSE 5% IN WATER 50 ML IV SCH (09:00)
[2018-03-26] MEDS ORDERED: FUROSEMIDE 40 MG TABLET PO SCH (09:00)
== END 2018-03-25 09:32 | disposition home or self-care (01) | DRG 871 ==
LOC: ED 22:17 → ICU 03-22 01:34
PROVIDERS: ADMIT Internal Medicine; ATTEND Internal Medicine